=== PATIENT | female | born 1950 | race Caucasian/White ===

== ENCOUNTER 2023-10-30 18:42 | Inpatient (IN) | payer MEDICARE, SELFPAY ==
[2023-10-30] VITALS (14 sets, daily range): BP systolic 68–121; BP diastolic 42–88; PULSE 110–131; RESP 24–34; TEMP 36.7–36.9; O2SAT 94–98; BMI 28.6
--- NOTE | 2023-10-30 18:41 | XACV_ITS ---
Exam Room: 2 Ht: 152 cm Wt: 93 kg BSA: 2.04 m2 Gender: Female : 1950 Exam Priority: Routine Procedure(s): Procedure Description: Diagnostic procedure Procedure Description: PCI procedure Procedure Description: Drug Eluting Coronary Stent Procedure Description: PTCA Procedure Description: Coronary Angiography Diagnostic Cath Status: Emergency Diagnostic Findings * Patient who does not see doctors arrived at the emergency room under a STEMI alert. EKG showed old anterior wall myocardial infarction and Q waves in leads II, III and aVF. Patient was not having chest pain but mild abdominal pain. She was mildly hypotensive with a blood pressure of 90/60. Her initial troponin was almost 4000 and she had already developed elevated LFTs. My initial impression was that she had completed a subacute inferior wall myocardial infarction with Q waves, elevated LFTs and elevated troponin to a significant degree. An EKG sometime after she arrived in the emergency room showed acute ST elevation which was new and the inferior leads. It was then my impression that she was extending the infarct so I decided to take her to the cardiac catheterization laboratory. * Coronary angiography reveals right coronary artery dominance. The right coronary artery is occluded in the proximal to midportion. I placed a guide and a wire and was able to get some flow down the vessel initially. It was barely WENDIE I flow. There was significant atherosclerosis throughout the artery. There was also a modest amount of thrombus burden. The left coronary artery system is small. The left main contains a modest to significant lesion in the ostium. There was ventricularization and damping of the pressure waveform upon insertion of the catheter. I was therefore only able to take 2 or 3 views of the left system. The LAD is patent with a good-sized diagonal branch. In the midportion of the LAD just past the diagonal there is a 70 to 80% stenosis. I do not see any previously placed stents as the patient had told me she has. Circumflex is small and there is a 95% ostial lesion in the circumflex. PCI Status: Emergency PCI Indication: Immediate PCI for STEMI Interventional Findings * I placed a guide to the right coronary artery. A wire was placed to the distal vessel with relative ease. Initially started with a 3 mm balloon. I did an angioplasty of the proximal and mid vessel. I then switched this out for a longer 2.5 mm balloon and angioplastied the artery all the way from the distal to the ostial edges. This provided some increase in flow. There was significant atherosclerosis of the entire vessel. There was also a modest thrombus burden. Once reestablishing flow which was only WENDIE I flow I placed a 3 x 16 mm stent in the proximal to midportion. The distal edge of the stent caused what is probably a small edge dissection with a pinching of the artery. I then stented this with a 2.5 x 8 mm stent. In the end there was reasonable WENDIE II flow. Conclusions 1. Occlusion of the right coronary artery, probably several hours old with near completion of the infarct and then extension of the infarct and occlusion of the right coronary artery. This underwent angioplasty and stenting with reestablishment of WENDIE II flow. Significant left main disease with ventricularization and dampening of the pressure waveform. Significant mid LAD and ostial circumflex disease. Recommendations * Dopamine was started for hypotension. At the time the patient left the laboratory her blood pressure was 122/74. The dopamine has been reduced from 20 mcg/kg/min to 15 mcg/kg/min. Plan is to wean the dopamine and reconsider the coronary anatomy as she recovers. She will likely need coronary bypass surgery if she is a candidate. Interventional RX Recommendation: PCI w/o planned CABG Diagnostic RX Recommendation: medical therapy and/or counseling Anticoagulation: Heparin Pressures Phase:Rest AO : 74 / 53 ( 63 ) @ 4:27:03 PM 86 / 52 ( 69 ) @ 4:27:03 PM 99 / 59 ( 79 ) @ 4:27:03 PM 152 / 73 ( 100 ) @ 4:27:03 PM Clinical Evaluation EBL: 5mL-10mL Procedural Details Current Diagnosis : STEMI. Pre-Procedure Time Out. Identified patient by full name and date of as verbalized by the patient/guarantor. Does the consent match the physician's order: N/A Emergent. Accurate & Complete Informed Consent: N/A Emergent. Inpatient/Outpatient History & Physical on Chart: N/A Emergent. If H&P is completed, is and addenduem needed: N/A Emergent; If yes, is the addendum complete: N/A Emergent. Visualize and Verify Site with Patient/Guarantor: N/A. Relevant Radiology Images available: N/A Emergent. Pre-op teaching completed and patient verbalized understanding. The risks, benefits, and alternatives of sedation and/or procedure were discussed by physician. The patient agrees to continue. Procedure started. Physician arrived. Physician scrubbed in. Immediate Pre-Procedure Time Out. Correct Patient: N/A Emergent; Correct Procedure: N/A Emergent; Correct Site: N/A Emergent; Correct Patient Position: N/A Emergent; Correct Supplies: N/A Emergent; Dried Flammable Prep: N/A Emergent; Blood Products Available: N/A Emergent;. [facility] Clinical Fraility Score: 4: Vulnerable. Appeals Referee Indications: ACS <= 24 hours. Chest Pain Symptom Assessment: Atypical Angina. Cardiovascular Instability: Yes, if yes, Persistant Ischemic Symptoms. Correct patient, site and procedure confirmed by cath team. Current diagnosis: STEMI. PERRLA. 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 Lungs clear x 5 lobes. IV Site on Arrival: 18 gauge in the right anticubital. IV Site on Arrival: 18 gauge in the left anticubital. Oxygen started at 2liters/min via nasal canula. bilateral groins was prepped with chloroprep then draped in the usual sterile fashion. Baseline sample Acquired. HR: 92 BPM. Lidocaine 1% infiltrated to the right groin. 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 Arterial access obtained. 6 vietnamese JR 4 guide catheter was inserted over the wire. Multiple views taken of right coronary artery. Lebo guidewire was advanced through the guide catheter to lesion in the mid RCA. PCI Indication: STEMI. Inflation number : 1 A AB TREK 3.50X15 RX BALLOON was prepped and advanced across the Mid RCA , then inflated to 8 PABLO for 0:21 seconds. Inflation number: 2 The AB TREK 3.50X15 RX BALLOON was reinflated across the Mid RCA, to 8 PABLO for 0:11 seconds. Inflation number: 3 The AB TREK 3.50X15 RX BALLOON was reinflated across the Mid RCA, to 6 PABLO for 0:19 seconds. Balloon out. Dopamine turned up to 15mcg/kg/min. Results checked. Dopamine turned up to 20mcg/kg/min. Inflation number : 1 A AB TREK 2.50X25 RX BALLOON was prepped and advanced across the Dist RCA , then inflated to 8 PABLO for 0:15 seconds. Inflation number: 2 The AB TREK 2.50X25 RX BALLOON was reinflated across the Dist RCA, to 8 PABLO for 0:19 seconds. Inflation number: 4 The AB TREK 2.50X25 RX BALLOON was reinflated across the Mid RCA, to 8 PABLO for 0:18 seconds. Results checked. PCI Indication : Immediate PCI for STEMI. Balloon out. Inflation Number : 5 A SENG R CURTIS 3.0X26 HANG -Lot Number# _[id number] EXP: 08/08/2025 was prepped and advanced across the Mid RCA. The stent was deployed at 12 PABLO for 0:30 seconds. Stent balloon out over wire. Inflation Number : 3 A MDT R CURTIS 2.5X8 HANG -Lot Number# _[id number] EXP:11/29/2025 was prepped and advanced across the Dist RCA. The stent was deployed at 12 PABLO for 0:34 seconds. Stent balloon and wire out. Results checked. Guide catheter out. A 5 vietnamese JL4 catheter in over wire. Multiple views taken of left coronary artery. Catheter out. Sheath upsized to a 6 Fr. Dopamine turned down to 15mcg/kg/min. A Suture was successful obtaining hemostatsis at the Right Femoral artery insertion site. Physician scrubbed out. Arterial sheath flushed and connected to tranducer and pressure bag with heparinized saline. PERRLA. 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 No VTE prophylaxis required. Medication's Wasted: Lidocaine 1% = 10 mL. Medication's Wasted: Other = Fentanyl 100mcg Versed 1 mg. Total IV fluids: 200 mL. Vital chart was stopped. Post-op diagnosis: Stent to RCA. Complications: None. Estimated blood loss: 5mL-10mL. Responsiveness - Normal response to verbal stimuli; alert and oriented, PERRLA. Airway - Unaffected, no intervention required; spontaneous ventilation. Circulation: W/N/L, pulses unchanged. Procedure completed. Patient transferred by bed to ICU. Procedure started. Access Site Site: Right Femoral artery Sheath Size: 6 Fr Hemostasis Method: Suture Hemostasis Success: Successful Procedure Medications Start: 8:36 PM Stop: 8:36 PM Medication: Versed Amount: 1 mg Route: I.V. Start: 8:46 PM Stop: 8:46 PM Medication: Dopamine 400mg/250 mL Amount: 10 mcg/kg/min Route: I.V. drip Start: 9:14 PM Stop: 9:14 PM Medication: Heparin Amount: 4000 units Route: I.V. Start: 9:21 PM Stop: 9:21 PM Medication: Zofran (ondansetron) Amount: 4 mg Route: I.V. I, the attending physician, have reviewed and verified all procedure medications. Yes, all medications given per verbal order History/Risk Factors Hypertension: No Dyslipidemia: No Peripheral Arterial Disease (PAD): No Myocardial Infarction ([place]): No Obesity: No Renal Disease: No Prior Interventions PCI: No CABG: No Valve Surgery: No Report Signatures Finalized by Dr. Beni Sunshine MD on 10/30/2023 10:01 PM
--- NOTE | 2023-10-30 18:41 | ECG_ITS ---
[facility] Test Date: 2023-10-30 Pat Name: Venessa Tyson Department: Room: ICU03 Gender: Female Molder Vacuum: : 1950 Requested By: Lurdes Zavala Order Number: [id number] Omaira MD: Pierre Perdue M.D. Measurements Intervals [place] Rate: 130 P: 56 RI: 175 QRS: -72 QRSD: 81 T: 94 QT: 263 QTc: 387 Interpretive Statements SINUS TACHYCARDIA POSSIBLE RIGHT VENTRICULAR CONDUCTION DELAY [RSR (QR) IN V1/V2] ANTEROLATERAL MYOCARDIAL INFARCTION , OF INDETERMINATE AGE [40+ ms Q WAVE IN I/aVL/V3-V6] INFERIOR MYOCARDIAL INFARCTION, PROBABLY RECENT No previous ECG available for comparison Electronically Signed On 10-31-2023 7:01:52 CDT by Pierre Perdue M.D. [id number]
--- NOTE | 2023-10-30 18:46 | W.ED.ARRPALP ---
HPI - Arrhythmia/Palpitations General: Chief Complaint: Arrhythmia/Palpitations Stated Complaint: STEMI ALERT Time Seen by Provider: 10/30/23 18:43 History of Present Illness: STEMI alert called by EMS, EMS state patient has not been feeling good for about 2 weeks, patient been having some left chest pain and radiating to her left arm as well as abdominal pain. Mild vomiting no diaphoresis or shortness of breath patient has not been having any chest pain today or currently. Patient is being complaint today is just abdominal pain, patient tells myself she is never had any cardiac history or medical history of any kind does not take any medicine has no allergies and does not go to the doctor. Review of Systems General: Reports: 10 or more systems reviewed and unremarkable except in HPI and below PFSH ED PFSH: Medical History (Updated 10/31/23 @ 06:52 by Moshe Neff DO) Myocardial infarction, inferior wall CAD (coronary artery disease) Physical Exam Const: COMMON NORMALS: no acute distress, average body habitus, patient oriented x3, no limitations, healthy appearing, alert and well nourished HENMT: COMMON NORMALS: normocephalic, atraumatic, hearing grossly normal bilaterally, external ears normal, Normal external nose present and moist oral mucous membranes HEAD & SCALP: normocephalic and atraumatic NOSE: Normal external nose present EXTERNAL EAR: Yes external ears normal Neck/C-Spine: COMMON NORMALS: no JVD Chest: COMMONS NORMALS: normal inspection of the chest and normal palpation of entire chest wall Resp: COMMON NORMALS: normal respiratory effort, No retractions, No use of accessory muscles and clear to auscultation bilaterally AUSCULTATION: clear to auscultation bilaterally Cardio: COMMON NORMALS: no JVD, regular rhythm, S1 normal heart sound present, S2 normal heart sound present, No gallops present (Cardio), No clicks present (Cardio) and No murmurs present (Cardio); negative for regular rate (tachycardia) RATE: abnormal rate (tachycardia) RHYTHM: regular rhythm HEART SOUNDS: S1 normal heart sound present and S2 normal heart sound present GI: COMMON NORMALS: Normal to inspection, nondistended, normoactive bowel sounds present, Soft to palpation, No hepatosplenomegaly present and no masses; negative for non-tender (tender over epigastric area, reproduces pain ) PALPATION: Yes Soft to palpation and Yes No hepatosplenomegaly present Neuro: COMMON NORMALS: patient oriented x3 SENSORIUM/ORIENTATION: Yes alert Course Vital Signs: Vital signs: Vital Signs Temperature 98.1 F 10/30/23 22:15 Pulse Rate 117 H 10/31/23 05:41 Respiratory Rate 24 H 10/30/23 22:45 Blood Pressure 116/88 10/30/23 22:45 Pulse Oximetry 95 10/30/23 22:45 Oxygen Delivery Me thod Room Air 10/30/23 22:00 MDM - Arrhythmia/Palpitations Medical Decision Making stemi alert called, ekg texted to dr elizalde, Dr Elizalde to evaluate pt shortly after arrival to ed, says atypical presentation with atypical ekg, delayed presentation of stemi with q waves, plan admission and serial enzymes from a cardiac standpoint [facility]ial lab of [facility] [id number] called to nursing, Dr Elizalde notified of this and other labs available at this time, such as wbc 26, bun/cr 26/1.4, lactic acid of 9.7, total bilirubin 5.9, a ct of chest/abd/pelvis was orderd, pt was bolused 2 liters of normal saline thought wbc, bun/cr, and lactic acid may be elevated due to cardiogenic shock as pts blood pressure was declining but continued to look for active source of infection and cause of elevated bilirubin, Dr Elizalde said prob something had happened but due to the pt being a very poor historian and unknown time of event, possibly up to 2 weeks ago, and q waves being present,pt is still not a candidate for angiography, and recommends following serial enzymes Patient came back from CT scan of her chest abdomen pelvis we noticed rhythm change on the monitor, we got any new EKG, this EKG had more ST changes consistent with STEMI, this EKG was texted Dr. Elizalde who came and evaluated the patient, patient will be going to Nuclear Supervising Operator. Pts pressure stayed soft even though 2 l of fluids bolused, dopamine was hung but not started infusion due to going to laboratory tech,dopamine Pt left for the laboratory tech at 20:26. Medical Records I reviewed the patient's medical records. Lab Data I reviewed the patient's lab results. 10/31/23 04:03 10/31/23 04:03 Radiology Impressions Chest/Abdomen/Pelvis CT 10/30/23 18:56 IMPRESSION: 1. There are scattered regions of bilateral subpleural interstitial thickening, greatest at the lung bases, suggestive of pulmonary fibrosis. 2. Mild cardiomegaly. 3. Multivessel atherosclerotic disease which involves the coronary arteries. IMPRESSION: 1. Gallbladder is distended associated with pericholecystic fluid stranding and regions of possible gallbladder wall thickening. Findings raise concern for acute cholecystitis. Consider right upper quadrant ultrasound for further evaluation as clinically warranted. 2. Mild peripancreatic hazy stranding raises concern for acute pancreatitis. Please correlate with pancreatic laboratory values. 3. There is mucosal thickening at the hepatic flexure colon and duodenum adjacent to the gallbladder which may be reactive in nature. Nonspecific enteritis is a possibility as well. 4. Chronic defects are present through the bilateral L5 pars interarticularis. There is resultant grade 1 spondylolisthesis at L5-S1 with bilateral neural foramina narrowing. 5. Moderate T9 anterior compression fracture. Laboratory Results WBC 26.00 10^3/uL (3.29-11.43) H 10/30/23 18:20 RBC 4.45 10^6/uL (3.85-5.65) 10/30/23 18:20 Hgb 13.90 g/dL (11.27-16.99) 10/30/23 18:20 Hct 41.2 % (36-47) 10/30/23 18:20 MCV 92.6 fl (85-98) 10/30/23 18:20 MCH 31.2 pg (27-33) 10/30/23 18:20 MCHC 33.7 g/dL (30-55) 10/30/23 18:20 RDW 13.9 % (12.1-15.1) 10/30/23 18:20 Plt Count 297 10^3/cmm (157-399) 10/30/23 18:20 MPV 9.7 fL (7.4-10.4) 10/30/23 18:20 Neut % (Auto) 92.4 % 10/30/23 18:20 Lymph % (Auto) 4.9 % 10/30/23 18:20 [place] % (Auto) 1.3 % 10/30/23 18:20 Eos % (Auto) 0.1 % 10/30/23 18:20 Baso % (Auto) 0.2 % 10/30/23 18:20 Neut # (Auto) 24.03 10^3/uL (1.8-7.7) H 10/30/23 18:20 Lymph # (Auto) 1.3 10^3/uL (0.8-4.8) 10/30/23 18:20 [place] # (Auto) 0.3 10^3/uL (0.2-0.9) 10/30/23 18:20 Eos # (Auto) 0.0 10^3/uL (0.0-0.8) 10/30/23 18:20 Baso # (Auto) 0.1 10^3/uL (0.0-0.1) 10/30/23 18:20 Nucleated RBC % (auto) 0 % 10/30/23 18:20 Nucleated RBCs # 0.0 /100WBC 10/30/23 18:20 Sodium 130 mmol/L (136-145) L 10/30/23 18:20 Potassium 3.2 mmol/L (3.5-5.1) L 10/30/23 18:20 Chloride 91 mmol/L (98-107) L 10/30/23 18:20 Carbon Dioxide 16 mmol/L (22-29) L 10/30/23 18:20 Anion Gap 26.2 (5-19) H 10/30/23 18:20 BUN 26 mg/dL (8-23) H 10/30/23 18:20 Creatinine 1.4 mg/dL (0.5-0.9) H 10/30/23 18:20 GFR Calculation Not Reportable 10/30/23 18:20 Glucose 147 mg/dL (65-115) H 10/30/23 18:20 Calculated Osmolality 277 mOsm/kg (285-295) L 10/30/23 18:20 Lactic Acid 9.7 mmol/L (0.5-2.2) H* 10/30/23 18:20 Calcium 8.7 mg/dL (8.5-10.5) 10/30/23 18:20 Magnesium 1.7 mg/dL (1.7-2.3) 10/30/23 18:20 Total Bilirubin 5.9 mg/dL (0.15-1.2) H 10/30/23 18:20 AST 94 U/L (0-32) H 10/30/23 18:20 ALT 50 U/L (0-33) H 10/30/23 18:20 Alkaline Phosphatase 464 U/L (35-105) H 10/30/23 18:20 Troponin T Baseline 3889 ng/L (0-10) H* 10/30/23 18:20 Troponin T 120 Minute 3096 ng/L (0-10) H 10/30/23 20:17 Delta Troponin T -793 ABS# (0-10) L 10/30/23 20:17 C-Reactive Protein 184.1 mg/L (0.0-4.9) H 10/30/23 18:20 Total Protein 7.5 g/dL (6.6-8.7) 10/30/23 18:20 Albumin 2.9 g/dL (3.5-5.2) L 10/30/23 18:20 Globulin 4.6 g/dL (1.3-4.6) 10/30/23 18:20 Lipase 77111 U/L (13-60) H 10/30/23 18:20 Procalcitonin 0.94 ng/mL (0-0.5) H 10/30/23 18:20 All radiology interpretation(s) finalized by discharge EKG Data EKG 1: I personally reviewed and interpreted this EKG as follows: EKG interpretation date: 10/30/23 EKG interpretation time: 18:36 Prior EKG tracings: not available for review Ischemic changes: acute STEMI, ST elevation (2,3, avf,) and q waves Interpretation: st depresion v2 Other EKG comments: Chest/Abdomen/Pelvis CT 10/30/23 18:56 IMPRESSION: 1. There are scattered regions of bilateral subpleural interstitial thickening, greatest at the lung bases, suggestive of pulmonary fibrosis. 2. Mild cardiomegaly. 3. Multivessel atherosclerotic disease which involves the coronary arteries. IMPRESSION: 1. Gallbladder is distended associated with pericholecystic fluid stranding and regions of possible gallbladder wall thickening. Findings raise concern for acute cholecystitis. Consider right upper quadrant ultrasound for further evaluation as clinically warranted. 2. Mild peripancreatic hazy stranding raises concern for acute pancreatitis. Please correlate with pancreatic laboratory values. 3. There is mucosal thickening at the hepatic flexure colon and duodenum adjacent to the gallbladder which may be reactive in nature. Nonspecific enteritis is a possibility as well. 4. Chronic defects are present through the bilateral L5 pars interarticularis. There is resultant grade 1 spondylolisthesis at L5-S1 with bilateral neural foramina narrowing. 5. Moderate T9 anterior compression fracture. EKG 2: I personally reviewed and interpreted this EKG as follows: EKG interpretation date: 10/30/23 EKG interpretation time: 19:40 Prior EKG tracings: available for review Ischemic changes: acute STEMI and ST elevation (avf,3,) Interpretation: depression 1, avl, v2, Other EKG comments: Chest/Abdomen/Pelvis CT 10/30/23 18:56 IMPRESSION: 1. There are scattered regions of bilateral subpleural interstitial thickening, greatest at the lung bases, suggestive of pulmonary fibrosis. 2. Mild cardiomegaly. 3. Multivessel atherosclerotic disease which involves the coronary arteries. IMPRESSION: 1. Gallbladder is distended associated with pericholecystic fluid stranding and regions of possible gallbladder wall thickening. Findings raise concern for acute cholecystitis. Consider right upper quadrant ultrasound for further evaluation as clinically warranted. 2. Mild peripancreatic hazy stranding raises concern for acute pancreatitis. Please correlate with pancreatic laboratory values. 3. There is mucosal thickening at the hepatic flexure colon and duodenum adjacent to the gallbladder which may be reactive in nature. Nonspecific enteritis is a possibility as well. 4. Chronic defects are present through the bilateral L5 pars interarticularis. There is resultant grade 1 spondylolisthesis at L5-S1 with bilateral neural foramina narrowing. 5. Moderate T9 anterior compression fracture. Discharge Plan Discharge Patient Disposition: Admitted As Inpatient Admit Provider: Beni Elizalde Clinical Impression: Cardiogenic shock ST elevation (STEMI) myocardial infarction Qualifiers: Involved coronary artery: unspecified coronary artery Qualified Code(s): I21.3 - ST elevation (STEMI) myocardial infarction of unspecified site Condition: Stable Coding Level of Care Code ED [employer] Developer for Christofer Vicente
[2023-10-30] MEDS: heparin 5,000 unit/mL INJ 1 mL 4000 UNIT IVP (18:48)
[2023-10-30] MEDS: clopidogrel 300 mg Tablet 600 MG PO (18:48)
[2023-10-30 18:52] LABS: Basophils # 0.1 10^3/uL (0.0-0.1); Basophils % 0.2 %; Eosinophils % 0.1 %; Hematocrit 41.2 % (36-47); Lymphocytes # 1.3 10^3/uL (0.8-4.8); Lymphocytes % 4.9 %; Mean Corpuscular HGB Conc 33.7 g/dL (30-55); Mean Corpuscular Hemoglobin 31.2 pg (27-33); Mean Corpuscular Volume 92.6 fl (85-98); Mean Platelet Volume 9.7 fL (7.4-10.4); Monocytes # 0.3 10^3/uL (0.2-0.9); Monocytes % 1.3 %; Neutrophils # 24.03 10^3/uL (1.8-7.7); Neutrophils % 92.4 %; Nucleated Red Blood Cells % 0 %; Platelet Count 297 10^3/cmm (157-399); Red Blood Count 4.45 10^6/uL (3.85-5.65); Red Cell Distribution Width 13.9 % (12.1-15.1)
--- NOTE | 2023-10-30 18:56 | CTR_ITS ---
PROCEDURE INFORMATION: Exam: CT Chest With Contrast; Diagnostic Exam date and time: 10/30/2023 7:27 PM Age: 73 years old Clinical indication: Abdominal pain; Epigastric; Chest wall pain; Additional info: Chest pain, epigastric pain, tachycardia, leukocytosis TECHNIQUE: Imaging protocol: Diagnostic computed tomography of the chest with contrast. Radiation optimization: All CT scans at this facility use at least one of these dose optimization techniques: automated exposure control; mA and/or kV adjustment per patient size (includes targeted exams where dose is matched to clinical indication); or iterative reconstruction. Contrast material: OMNI 350; Contrast volume: 88 ml; Contrast route: INTRAVENOUS (IV); COMPARISON: No relevant prior studies available. RADIATION DOSE METRICS: Total DLP (mGy-cm): 753 FINDINGS: Lungs: There are scattered regions of bilateral subpleural interstitial thickening, greatest at the lung bases, suggestive of pulmonary fibrosis. Pleural spaces: Unremarkable. No pneumothorax. No pleural effusion. Heart: Mild cardiomegaly. Coronary arteries: Multivessel atherosclerotic disease which involves the coronary arteries. Lymph nodes: Unremarkable. No enlarged lymph nodes. Vasculature: Unremarkable. No aortic aneurysm. Bones/joints: Unremarkable. No acute fracture. Soft tissues: Unremarkable. PROCEDURE INFORMATION: Exam: CT Abdomen And Pelvis With Contrast Exam date and time: 10/30/2023 7:27 PM Age: 73 years old Clinical indication: Abdominal pain; Epigastric; Chest wall pain; Additional info: Chest pain, epigastric pain, tachycardia, leukocytosis TECHNIQUE: Imaging protocol: Computed tomography of the abdomen and pelvis with contrast. Radiation optimization: All CT scans at this facility use at least one of these dose optimization techniques: automated exposure control; mA and/or kV adjustment per patient size (includes targeted exams where dose is matched to clinical indication); or iterative reconstruction. Contrast material: OMNI 350; Contrast volume: 88 ml; Contrast route: INTRAVENOUS (IV); COMPARISON: No relevant prior studies available. RADIATION DOSE METRICS: Total DLP (mGy-cm): 529 FINDINGS: Liver: Normal. No mass. Gallbladder and biliary ducts: The gallbladder is distended associated with pericholecystic fluid stranding. No calcified stones are seen. Common bile duct is mildly prominent measuring 8.4 mm. Gallbladder wall appears thickened in regions measuring 5 mm series 5, image 24. Pancreas: Mild peripancreatic hazy stranding. Spleen: Normal. No splenomegaly. Adrenal glands: Normal. No mass. Kidneys and ureters: Normal. No hydronephrosis. Stomach and bowel: There is mucosal thickening of the duodenal with adjacent mesenteric stranding. There is mucosal thickening of the hepatic flexure large bowel with adjacent mesenteric stranding. These findings are adjacent to the gallbladder and may be reactive in nature. Appendix: No evidence of appendicitis. Intraperitoneal space: See Stomach and bowel finding. Vasculature: Unremarkable. No abdominal aortic aneurysm. Lymph nodes: Unremarkable. No enlarged lymph nodes. Urinary bladder: Unremarkable as visualized. Reproductive: Unremarkable as visualized. Bones/joints: Chronic defects are present through the bilateral L5 pars interarticularis. There is resultant grade 1 spondylolisthesis at L5-S1 with bilateral neural foramina narrowing. Moderate T9 anterior compression fracture. Soft tissues: Small fat containing umbilical hernia. CT/CT chest abdpel w/*[id number] IMPRESSION: 1. There are scattered regions of bilateral subpleural interstitial thickening, greatest at the lung bases, suggestive of pulmonary fibrosis. 2. Mild cardiomegaly. 3. Multivessel atherosclerotic disease which involves the coronary arteries. IMPRESSION: 1. Gallbladder is distended associated with pericholecystic fluid stranding and regions of possible gallbladder wall thickening. Findings raise concern for acute cholecystitis. Consider right upper quadrant ultrasound for further evaluation as clinically warranted. 2. Mild peripancreatic hazy stranding raises concern for acute pancreatitis. Please correlate with pancreatic laboratory values. 3. There is mucosal thickening at the hepatic flexure colon and duodenum adjacent to the gallbladder which may be reactive in nature. Nonspecific enteritis is a possibility as well. 4. Chronic defects are present through the bilateral L5 pars interarticularis. There is resultant grade 1 spondylolisthesis at L5-S1 with bilateral neural foramina narrowing. 5. Moderate T9 anterior compression fracture.
--- NOTE | 2023-10-30 19:03 | P.CONIM_ITS ---
Providers/Reason For Consult 2 Consulting Physician/Specialty*: Cardiovascular medicine Reason for Consult*: STEMI alert Requesting Physician: Emergency room History of Present Illness History of Present Illness Venessa Tyson is a 73 year old female who does not see physicians. She is a extraordinarily poor historian. She apparently lives with her grandson. She does not know where he is at the time. She says that she had the onset of abdominal pain 3 hours ago. She called the ambulance. The ambulance drivers called a STEMI alert. Her EKG shows Q waves in leads II, III, aVF and V3 through V6. There is minimal ST elevation in leads III and aVF. There is ST segment depression in leads I and L. Upon arrival to the emergency room she was complaining of abdominal pain. Her blood pressure is 90/54. She says she does not take any medications and has no allergies. She says that she has stents in her heart but she does not remember anything about having them put in. She does not know if she has had a heart attack. She says she does not have any other medical problems. She has not been seen by a physician in 10 or more years. Initial labs which came back at the time of my arrival include a white blood cell count of 26,000. Potassium is 3.2. Her BUN and creatinine are slightly high 26 and 1.4. The initial troponin is 3389. Her transaminases are elevated. Her albumin is 2.9. My initial impression was that she had had an old anterior wall myocardial infarction as evidenced by Q waves in leads V3 through V6 and within several hours or days had an inferior wall myocardial infarction which she had essentially completed. She had developed Q waves with significant troponin elevation and elevation in her transaminases. While in the emergency room another EKG was obtained at 1942 hrs. This now shows ST elevation significantly in leads III and aVF with ST depression in leads I and L and V1 and V2. She is now extending this infarct. Review of Systems 2 Narrative: Review of systems is negative Medications/Allergies Allergies Allergy/AdvReac Type Severity Reaction Status Date / Time No Known Allergies Allergy Verified 10/30/23 18:44 PFSH Acute 2 PFSH: Medical History (Updated 10/30/23 @ 19:59 by Beni Sunshine MD) Myocardial infarction, inferior wall CAD (coronary artery disease) Vitals/I&O/Wt Last Vital Signs Temp 98.4 F 10/30/23 18:39 Pulse 126 H 10/30/23 18:57 Resp 24 H 10/30/23 18:57 BP 90/54 10/30/23 18:57 Pulse Ox 95 10/30/23 18:57 O2 Del Method Room Air 10/30/23 18:39 Weight last 48 hrs Weight 167 lb Physical Exam 2 Narrative: GENERAL: In general she looks comfortable. She is complaining of mild abdominal pain but no chest pain. HEENT: Exam within normal limits. NECK: Supple without jugular vein distention. The carotid upstroke is normal without bruits. BACK: Exam normal. LUNGS: Clear. HEART: Regular rate and rhythm. ABDOMEN: Benign without organomegaly or tenderness. EXTREMITIES: No edema. NEUROLOGIC: Exam normal. SKIN: Unremarkable. Data 10/30/23 18:20 10/30/23 18:20 A&P Assessment and plan (1) CAD (coronary artery disease): (2) Myocardial infarction, inferior wall: Plan She will go to the cardiac catheterization laboratory. This is a high risk situation with what is probably a previous anterior wall PR and a new nearly completed inferior wall PR with extension. Consult Attestations 2 Medical Necessity Statement: Hospitalization and cardiac catheterization required for management of subacute inferior wall PR with extension. and High Time for a total of 75 minutes, includes reviewing past or interval history, examining/interviewing patient, placing orders, counseling patient/family/other support, updating patient/family/other support, discussing plan of care with staff, communicating with other healthcare providers, documenting encounter and coordinating care Diagnoses CAD (coronary artery disease) I25.10 Myocardial infarction, inferior wall I21.19
[2023-10-30 19:07] LABS: Alanine Aminotransferase 50 U/L (0-33); Albumin Level 2.9 g/dL (3.5-5.2); Alkaline Phosphatase 464 U/L (35-105); Anion Gap 26.2 (5-19); Aspartate Amino Transferase 94 U/L (0-32); Blood Urea Nitrogen 26 mg/dL (8-23); Calcium 8.7 mg/dL (8.5-10.5); Carbon Dioxide 16 mmol/L (22-29); Chloride 91 mmol/L (98-107); Creatinine Clr Calc Pharmacy 36.1938; Globulin 4.6 g/dL (1.3-4.6); Glucose 147 mg/dL (65-115); Osmolality Calculated 277 mOsm/kg (285-295); Potassium 3.2 mmol/L (3.5-5.1); Sodium 130 mmol/L (136-145); Total Bilirubin 5.9 mg/dL (0.15-1.2); Total Protein 7.5 g/dL (6.6-8.7)
[2023-10-30 19:08] LABS: Troponin(5th) Baseline 3889 ng/L (0-10)
[2023-10-30] MEDS: sodium chloride 0.9% 1,000 ML 999 ML IV ×2 (19:13→19:47)
--- NOTE | 2023-10-30 19:13 | PC.NURSE ---
Dr Neff notified of baseline troponin level.
[2023-10-30 19:18] LABS: C Reactive Protein 184.1 mg/L (0.0-4.9); Magnesium 1.7 mg/dL (1.7-2.3)
[2023-10-30] MEDS: iohexol 350 mg/mL 500 mL Btl (per mL) IV (19:36)
--- NOTE | 2023-10-30 19:49 | PC.NURSE ---
pt plavix pt was administered plavix @ 1950 by jody musa. maximiliano estrada rn.
[2023-10-30 20:17] LABS: Lactic Sepsis W/Reflex 9.7 mmol/L (0.5-2.2)
[2023-10-30 20:21] LABS: Procalcitonin 0.94 ng/mL (0-0.5)
--- NOTE | 2023-10-30 20:25 | PC.NURSE ---
Dopamine given to salvage laborer nursing staff per instruction of Dr Neff. Dopamine pulled from [facility] and given to Therese ORLANDO.
[2023-10-30 20:41] LABS: Troponin 5 2HR Delta -793 ABS# (0-10)
--- NOTE | 2023-10-30 20:41 | ECG_ITS ---
[facility] [place] Test Date: 2023-10-30 Pat Name: Venessa Tyson Department: Room: ICU03 Gender: Female Financial Aid Coordinator: : 1950 Requested By: Lurdes Zavala Order Number: [id number] Omaira MD: Pierre Perdue M.D. Measurements Intervals [place] Rate: 15 P: 0 AL: 0 QRS: -51 QRSD: 206 T: 217 QT: 658 QTc: 330 Interpretive Statements SINUS RHYTHM WITH HIGH GRADE AV BLOCK INTRAVENTRICULAR CONDUCTION DELAY [130+ ms QRS DURATION] INFERIOR MYOCARDIAL INFARCTION , PROBABLY RECENT [40+ ms Q WAVE AND/OR ST/T ABNORMALITY IN II/aVF] ANTEROLATERAL MYOCARDIAL INFARCTION , OF INDETERMINATE AGE [40+ ms Q WAVE IN I/aVL/V3-V6] PROLONGED QT INTERVAL No previous ECG available for comparison Electronically Signed On 10-31-2023 7:04:36 CDT by Pierre Perdue M.D. [email or web address] [email or web address] [email or web address]/store/[id number] f
[2023-10-30 20:43] LABS: Troponin 5 2HR 3096 ng/L (0-10)
[2023-10-30 20:49] LABS: Lipase 12009 U/L (13-60)
[2023-10-30 21:23] LABS: Reflex Lactate Order REFLEX LACTIC ORDERD
--- NOTE | 2023-10-30 21:45 | PC.NURSE ---
Received from oil field laborer via bed with nurse at bedside. Sheath in place to right groin connected to pressure bag. Right groin insertion site noted with no hematoma or bleeding with clear dressing c/d/i. No reports of pain or shortness of breath. Dr. Sunshine to bedside and order given to keep right arterial sheath in place overnight to monitor blood pressure closely and maintain dopamine infusing to maintain SBP over 110. Educated patient that she will have to remain in bed tonight with head below 10degrees.
[2023-10-30] MEDS: DOPamine drip 400 MG/250 ML PREMIX 42.61 MG IV (21:51)
--- NOTE | 2023-10-30 21:53 | PC.NURSE ---
Patient came into the ICU with Dopamine drip running at 15 mcg/kg/min. Drip was scanned and MAR was updated to reflect this.
[2023-10-30] MEDS: sodium chloride 0.9% 1,000 ML 100 ML IV (22:03)
[2023-10-30] MEDS: enoxaparin 40 mg/0.4 mL Syringe SUBCUT (22:04)
[2023-10-30 22:16] LABS: Add Urine Microscopic? YES; Bilirubin Urine 2+ (Negative); Blood Urine Neg (Negative); Glucose Urine UA Norm (Normal); Ketones Urine 1+ (Negative); Leukocyte Esterase Urine Trace (Negative); Nitrate Urine Negative (Negative); Protein Urine 1+ (Negative); Urine Appearance Turbid (CLEAR); Urine Color Yellow (Yellow); Urobilinogen Urine 4 mg/dL (Negative); pH Urine 5 (5-7)
[2023-10-30 22:17] LABS: Add Urine Culture? Yes; Amorphous Sediment Urine 1+ /hpf; Bacteria Urine 3+ /hpf; Coarse Granular Casts Urine 0-4 /lpf; Mucus Urine 2+ /hpf; Transitional Epi Cells Urine 0-4 /hpf; WBC Urine 15-25 /hpf (0-5)
[2023-10-31] VITALS (12 sets, daily range): BP systolic 96–119; BP diastolic 68–86; PULSE 107–117; RESP 22–34; TEMP 36.7; O2SAT 90–94
[2023-10-31 00:18] LABS: Lactic Acid level (Lactate) 2.3 mmol/L (0.5-2.2)
--- NOTE | 2023-10-31 00:41 | ECG_ITS ---
[facility] Test Date: 2023-10-31 Pat Name: Venessa Tyson Department: Room: ICU03 Gender: Female Brass Reclaimer: : 1950 Requested By: Lurdes Zavala Order Number: [id number] Omaira MD: Pierre Perdue M.D. Measurements Intervals [place] Rate: 122 P: 0 [place]: 0 QRS: -39 QRSD: 90 T: 120 QT: 265 QTc: 378 Interpretive Statements SINUS TACHYCARDIA INFERIOR MYOCARDIAL INFARCTION , LIKELY RECENT [40+ ms Q WAVE AND/OR ST/T ABNORMALITY IN II/aVF] POSSIBLE ANTEROLATERAL MYOCARDIAL INFARCTION , LIKELY RECENT[30 ms Q WAVE IN I/aVL/V3-V6] Compared to ECG 10/30/2023 19:40:12 Sinus rhythm no longer present Intraventricular conduction delay no longer present Prolonged QT interval no longer present Myocardial infarct finding still present Electronically Signed On 10-31-2023 7:03:53 CDT by Pierre Perdue M.D. [email or web address] Holdingsochs[facility] healthB[facility]heAmeric[facility].[employer]/store/[id number]
[2023-10-31 01:04] LABS: Troponin 5 6HR Delta -851 ng/L (0-12)
[2023-10-31 01:06] LABS: Troponin 5 6HR 3038 ng/L (0-10)
[2023-10-31] MEDS: DOPamine drip 400 MG/250 ML PREMIX 42.61 MG IV ×2 (02:06→07:19)
[2023-10-31 04:13] LABS: Basophils # 0.1 10^3/uL (0.0-0.1); Basophils % 0.4 %; Hematocrit 35.5 % (36-47); Lymphocytes # 0.8 10^3/uL (0.8-4.8); Mean Corpuscular HGB Conc 34.6 g/dL (30-55); Mean Corpuscular Hemoglobin 31.9 pg (27-33); Mean Corpuscular Volume 92.2 fl (85-98); Mean Platelet Volume 9.3 fL (7.4-10.4); Monocytes # 0.6 10^3/uL (0.2-0.9); Monocytes % 2.2 %; Neutrophils # 25.82 10^3/uL (1.8-7.7); Neutrophils % 93.4 %; Nucleated Red Blood Cells % 0 %; Platelet Count 258 10^3/cmm (157-399); Red Blood Count 3.85 10^6/uL (3.85-5.65); Red Cell Distribution Width 14.2 % (12.1-15.1); White Blood Count 27.64 10^3/uL (3.29-11.43)
[2023-10-31 05:02] LABS: Anion Gap 18.6 (5-19); Blood Urea Nitrogen 22 mg/dL (8-23); Carbon Dioxide 14 mmol/L (22-29); Chloride 100 mmol/L (98-107); Creatinine Clr Calc Pharmacy 46.1311; Potassium 3.6 mmol/L (3.5-5.1); Sodium 129 mmol/L (136-145)
[2023-10-31 05:03] LABS: Glucose 215 mg/dL (65-115); Osmolality Calculated 278 mOsm/kg (285-295)
[2023-10-31] MEDS: sodium chloride 0.9% 1,000 ML 100 ML IV (05:12)
--- NOTE | 2023-10-31 06:28 | PC.NURSE ---
Dr. Sunshine to bedside, states that patient has a hot gallbladder and he will consult the hospitalist for this. Attempted to call Carmen Arriola, patients daughter to update on this, no answer at present time.
--- NOTE | 2023-10-31 06:35 | P.PN_ITS ---
Subjective 2 Subjective: Still no CP. I became aware of the CT and lab abnormalities at 0600 today. She is having minimal abdominal pain. CT suggests choecystitis and possible pancreatitis. Lipase is elevated. WBC 26k. Cr 1.1 this am. Troponins still quite high. Transaminases elevated. Vitals/I&O/Wt Last Vital Signs Temp 98.1 F 10/30/23 22:15 Pulse 117 H 10/31/23 05:41 Resp 24 H 10/30/23 22:45 BP 116/88 10/30/23 22:45 Pulse Ox 95 10/30/23 22:45 O2 Del Method Room Air 10/30/23 22:00 10/30/23 10/30/23 10/31/23 14:59 22:59 06:59 Intake Total 1999 1096.093 / 3096.093 Output Total 100 / 100 450 / 550 Balance 1900 / 1900 646.093 / 2546.093 Weight last 48 hrs Weight 168 lb 9.6 oz Weight 167 lb 8 oz Weight 167 lb Physical Exam 2 Narrative: In general comfortable Heent: WNL chest clear COR tachy abd soft mildly tender ext no edemal Urinary Catheter Management: Smith: Cath Placed During This Visit: yes Reason for Continuing Indwelling Catheter: Accurate Measurement of Urinary Output in Critically Ill Patients Urinary Catheter Date of Insertion: 10/30/23 Urinary Catheter Time of Insertion: 21:35 Data 10/31/23 04:03 10/31/23 04:03 Micro: Microbiology 10/30/23 19:47 Blood Culture - Preliminary Blood SPECIMEN COLLECTED 10/30/23 19:45 Blood Culture - Preliminary Blood SPECIMEN COLLECTED A&P Assessment and plan (1) CAD (coronary artery disease): (2) Myocardial infarction, inferior wall: (3) Cholecystitis: (4) Transaminitis: Plan Surgery consult. GB drain. Antibiotics. Attestations 2 Medical Necessity Statement*: Continued hspitalization for NM and cholecystitis. and High Time for a total of 60 minutes, includes reviewing past or interval history, examining/interviewing patient, placing orders, counseling patient/family/other support, updating patient/family/other support, discussing plan of care with staff, communicating with other healthcare providers, documenting encounter and coordinating care Diagnoses CAD (coronary artery disease) I25.10 Myocardial infarction, inferior wall I21.19 Cholecystitis K81.9 Transaminitis R74.01
--- NOTE | 2023-10-31 06:43 | US_ITS ---
WS: [id number] RIGHT UPPER QUADRANT ULTRASOUND HISTORY: abnormal GB and pancreas on CT COMPARISON: None available. Liver: 13.3 cm in length. Normal size liver and echogenicity. No bile duct dilatation or mass. Portal Vein: Normal hepatopetal flow with monophasic waveform. Gallbladder: mild hydrops with wall thickening. no stones, possible septation or gangrenous wall. CBD: not seen Pancreas: not seen Right kidney: 9.7 cm in length. Normal size and echogenicity. No hydronephrosis or mass. Aorta and IVC: Unremarkable abdominal aorta and IVC. No ascites. US/US abdomen limited [id number] IMPRESSION: Suspect acute cholecystitis with possible gangrene. Called to Dr. Fournier at time of exam.
[2023-10-31] MEDS: ampicillin-sulbactam 1.5 GM in sodium chloride 0.9% (plus) 50 ML IV (07:52)
[2023-10-31] MEDS: aspirin 81 mg EC Tablet PO (10:30)
[2023-10-31] MEDS: clopidogrel 75 mg Tablet PO (10:31)
[2023-10-31] MEDS: piperacillin-tazobactam 3.375 GM in sodium chloride 0.9% (plus) 50 ML IV (11:08)
--- NOTE | 2023-10-31 11:13 | PC.SOCIAL ---
IMM Update pg 2 of IMM updated and reviewed w/ patient. Copy provided and copy dated, initialed and placed in chart.
--- NOTE | 2023-10-31 11:42 | PM.CONSULT ---
Providers/Reason For Consult Consulting Physician/Specialty*: cardiology/surgery Reason for Consult*: septic shock Attending Physician: Beni Sunshine MD History of Present Illness History of Present Illness Venessa Tyson is a 73 year old female with a past medical history of CAD, history of stenting in 2008 who presents to [facility] for right upper quadrant abdominal pain. Currently patient is alert oriented x 4, following all commands, she is on 10 of dopamine, blood pressure 116/88, pulse is 110, sinus tachycardia, respiratory rate 20, she is 90% on room air, temperature 98.1. Patient tells me for the last 2 weeks she has been experiencing abdominal pain, right upper quadrant pain, nausea, vomiting, feeling unwell, she is also been experiencing intermittent chest pain, she tells me that she came to the emergency room this evening due to severe right upper quadrant abdominal pain that was unrelenting. -Ambulance was called out to patient home, ambulance called STEMI alert ? In the emergency room she was found to have Q waves in leads II, III, aVF, V3 through V6, minimal ST elevations lead 3 and aVF -Initial concern was for old anterior wall myocardial infarction as evidenced by Q waves in leads V3 to V6 ? While in the emergency room another EKG obtained at [address] elevation in lead III, aVF with ST depressions in leads I V2, V3, baseline troponin 3889 -There was concerns for previous anterior wall IA and a newly completed inferior wall IA with extension -Patient was taken to the [facility], had 2 stents placed to RCA, moved to the ICU on a dopamine drip ? Monitor in ICU on the dopamine drip, ? CT scan in the emergency room shows gallbladder is distended associated with pericholecystic fluid stranding and regions of possible gallbladder wall thickening, findings raising the concern of acute cholecystitis, with mild peripancreatic hazy stranding raising concern for acute pancreatitis ? WBC in the emergency room 26,000, neutrophilic, lactic acid 9.7, down to 2.3, creatinine 1.4, bili is 5.9, AST 94, ALT 50, alk phos 464, lipase over 12,000, CRP 184, Pro-Jovanny 0.94, UA showing evidence of UTI -General surgery was consulted by cardiology, for concerns for acute cholecystitis, concerns for gallstone pancreatitis, general surgery recommended cholecystostomy tube placement, IR -Given recent history of stent placement patient's aspirin Plavix, our radiology service feels patient is a high risk of bleeding, high risk of complications for IR guided cholecystostomy tube placement, recommended transfer to tertiary level center after discussion with radiology and general surgery -Hospitalist team was consulted in the morning at about 11 AM by supervisor malt house -I reviewed the case in detail at about 11 AM, -Patient was seen immediately therafter -Patient was examined, she denies any chest pain, does report severe right upper quadrant pain, no shortness of breath, does report fatigue, malaise, does report feeling feverish, feeling nauseous ? I did detailed discussion with patient what I think likely has happened disease?for the last 2 weeks she was dealing with her acute cholecystitis, and likely what happens at she developed gallstone pancreatitis, and sepsis and septic shock, there was no reason the reason she probably ended up in the hospital, given her underlying CAD, at the same time she developed an cardiac stress because of the gallstone pancreatitis, without cardiac stress likely resulted in an STEMI -The other concern I had was for a common bile duct stone, although the CT scan shows that the CBD is mildly prominent 8.4 mm, she could possibly have a common bile duct stone, and have features of acute ascending cholangitis, nonetheless we do not have any GI capabilities here at [facility], we do not have any gastroenterology ERCP capability, would recommend for her to be transferred to tertiary level center for consideration -Nonetheless when I am concerned about is her gallstone pancreatitis, and her gangrenous cholecystitis ? Given that now she is on aspirin and Plavix, she is a high risk for a cholecystectomy -I spoke to interventional radiology, given that patient is on aspirin Plavix she is a high bleeding risk, and she would be a complicated procedure given her gangrenous cholecystitis, they felt that patient would be better served at a tertiary level center that could control bleeding if that were the case ? Spoke to cardiology, Dr. Sunshine, patient needs to be on aspirin, Plavix, certainly it could be held for a procedure, but given 2 RCA stents being placed, her ischemic cardiomyopathy is a very high risk to hold antiplatelet therapy, it certainly is a difficult situation given that she needs to have surgical intervention for gangrenous cholecystitis ? Given patient's complicated situation, she would be better served [facility], I could place the cholecystostomy tube and could have IR backup/general surgery backup in the case that she would have any bleeding ? I have already spoken to general surgery, their concern was asked with IR with bleeding for cholecystostomy tube placement, but in addition there was concern for common bile duct stone and the need for ERCP procedure over which we do not have here at [facility] ? Spoke to [facility] transfer line, need for transfer for high risk cholecystostomy tube placement high risk of bleeding, needs IR, needs general surgery, needs gastroenterology for consideration of possible ERCP procedure for concern for possible CBD dilatation common bile duct stone ? Patient's pain is septic Spoke to accredited legal secretary at [facility], accepted transfer, to accredited legal secretary at [facility], accepted to transfer, to ICU, accredited legal secretary at [facility], accepted transfer, to ICU, Patient was reexamined, he is on 12 dopamine, alert, awake, on room air, npo, discussed transfer, she agrees to transfer to [facility] Review of Systems Const: Reports: fever(s), fatigue and malaise Card: Reports: chest pain Resp: Denies: dyspnea GI: Reports: abdominal pain : Denies: flank pain Musc: Denies: back pain Neuro: Denies: headache(s) Medications/Allergies Home Medications Medication Instructions Recorded Confirmed Last Taken Type No Known Home Medications 10/30/23 10/30/23 Unknown History Allergies Allergy/AdvReac Type Severity Reaction Status Date / Time No Known Allergies Allergy Verified 10/30/23 18:44 Current Medications Generic Name Dose Route Start Last Admin Trade Name Jarekq PRN Reason Stop Dose Admin Aspirin 81 mg 10/31/23 09:00 10/31/23 10:30 Aspirin 81 Mg Ec Tablet PO 81 mg DAILY WOLFGANG Administration Clopidogrel Bisulfate 75 mg 10/31/23 09:00 10/31/23 10:31 Clopidogrel 75 Mg Tablet PO 75 mg DAILY WOLFGANG Administration Enoxaparin Sodium 40 mg 10/30/23 22:00 10/30/23 22:04 Enoxaparin 40 Mg/0.4 Ml Syringe SUBCUT 40 mg BEDTIME WOLFGANG Administration Dopamine HCl/Dextrose 400 mg in 250 mls @ 14.203 mls/hr 10/30/23 20:15 10/31/23 07:19 Intropin Drip IV 15 mcg/kg/min CONT WOLFGANG 42.61 mls/hr Administration Protocol 5 MCG/KG/MIN Sodium Chloride 1,000 mls @ 100 mls/hr 10/30/23 21:45 10/31/23 05:12 Sodium Chloride 0.9% IV 100 mls/hr .Q10H WOLFGANG Administration Piperacillin Sod/Tazobactam 50 mls @ 12.5 mls/hr 10/31/23 11:00 10/31/23 11:08 Sod 3.375 gm/ Sodium Chloride IV 12.5 mls/hr Q8H WOLFGANG Administration PFSH Acute PFSH: Medical History (Updated 10/31/23 @ 13:48 by Prince Sales MD) Transaminitis Cholecystitis Myocardial infarction, inferior wall CAD (coronary artery disease) Vitals/I&O/Wt Last Vital Signs Temp 98.1 F 10/30/23 22:15 Pulse 117 H 10/31/23 07:45 Resp 24 H 10/30/23 22:45 BP 116/88 10/30/23 22:45 Pulse Ox 90 10/31/23 07:45 O2 Del Method Room Air 10/31/23 07:45 10/30/23 10/31/23 10/31/23 22:59 06:59 14:59 Intake Total 1999 / 1999 1096.093 / 3096.093 272.282 / 272.282 Output Total 100 / 100 450 / 550 Balance 1900 / 1900 646.093 / 2546.093 272.282 / 272.282 Weight last 48 hrs Weight 76.476 kg Weight 75.977 kg Weight 75.75 kg Physical Exam Const: COMMON NORMALS: no acute distress and patient oriented x3 HENMT: COMMON NORMALS: normocephalic HEAD & SCALP: normocephalic Eye: COMMON NORMALS: Equal, round and reactive pupils present PUPIL: Yes Equal, round and reactive pupils present Resp: COMMON NORMALS: normal respiratory effort, No retractions, No use of accessory muscles and clear to auscultation bilaterally AUSCULTATION: clear to auscultation bilaterally Cardio: COMMON NORMALS: regular rhythm, S1 normal heart sound present and S2 normal heart sound present RHYTHM: regular rhythm HEART SOUNDS: S1 normal heart sound present and S2 normal heart sound present GI: OTHER: abdomen soft, distended, RUQ pain to palpation, epigastrum tender to palpations, no guarding, no rebound, no rigidity Extremity: COMMON NORMALS: no calf tenderness Neuro: COMMON NORMALS: patient oriented x3, CN's II-XII intact bilaterally and moves all extremities Psych: COMMON NORMALS: mental status grossly normal Urinary Catheter Management: Smith: Cath Placed During This Visit: yes Reason for Continuing Indwelling Catheter: Accurate Measurement of Urinary Output in Critically Ill Patients Urinary Catheter Date of Insertion: 10/30/23 Urinary Catheter Time of Insertion: 21:35 Sepsis: Is patient septic: Yes Focused sepsis exam performed: Yes Focused sepsis exam: dp/pt pulses diminished bilaterally, no mottling, cap refill>2 seconds Data 10/31/23 04:03 10/31/23 04:03 Micro: Microbiology 10/30/23 19:47 Blood Culture - Preliminary Blood SPECIMEN COLLECTED 10/30/23 19:45 Blood Culture - Preliminary Blood SPECIMEN COLLECTED A&P Assessment and plan (1) Septic shock: CT abdomen and pelvis IMPRESSION: 1. Gallbladder is distended associated with pericholecystic fluid stranding and regions of possible gallbladder wall thickening. Findings raise concern for acute cholecystitis. Consider right upper quadrant ultrasound for further evaluation as clinically warranted. 2. Mild peripancreatic hazy stranding raises concern for acute pancreatitis. Please correlate with pancreatic laboratory values. gallbladder ultrasound US/US abdomen limited [id number] IMPRESSION: Suspect acute cholecystitis with possible gangrene -concern for gallstone pancreatitis -concern for acute cholecystitis possibly gangrenous, need for cholecystosotomy tube placement, high risk of bleeding on aspirin and plavix which cannot be held due to recent RCA stent placment need for IR -concern for acute ascending cholangitis due CBD dilatation, need for GI/ERCP PLAN: -keep npo -coutinue vancomycin -coutinue zosyn -coutinue dopamine -serial abdominal exam -coutinue normal saline (2) Acute gangrenous cholecystitis: (3) Ascending cholangitis: (4) ST elevation (STEMI) myocardial infarction: Qualifiers: Involved coronary artery: unspecified coronary artery Qualified Code(s): I21.3 - ST elevation (STEMI) myocardial infarction of unspecified site (5) CAD (coronary artery disease): Diagnostic Cath Status: Emergency Diagnostic Findings * Patient who does not see doctors arrived at the emergency room under a STEMI alert. EKG showed old anterior wall myocardial infarction and Q waves in leads II, III and aVF. Patient was not having chest pain but mild abdominal pain. She was mildly hypotensive with a blood pressure of 90/60. Her initial troponin was almost 4000 and she had already developed elevated LFTs. My initial impression was that she had completed a subacute inferior wall myocardial infarction with Q waves, elevated LFTs and elevated troponin to a significant degree. An EKG sometime after she arrived in the emergency room showed acute ST elevation which was new and the inferior leads. It was then my impression that she was extending the infarct so I decided to take her to the cardiac catheterization laboratory. * Coronary angiography reveals right coronary artery dominance. The right coronary artery is occluded in the proximal to midportion. I placed a guide and a wire and was able to get some flow down the vessel initially. It was barely WENDIE I flow. There was significant atherosclerosis throughout the artery. There was also a modest amount of thrombus burden. The left coronary artery system is small. The left main contains a modest to significant lesion in the ostium. There was ventricularization and damping of the pressure waveform upon insertion of the catheter. I was therefore only able to take 2 or 3 views of the left system. The LAD is patent with a good-sized diagonal branch. In the midportion of the LAD just past the diagonal there is a 70 to 80% stenosis. I do not see any previously placed stents as the patient had told me she has. Circumflex is small and there is a 95% ostial lesion in the circumflex. PCI Status: Emergency PCI Indication: Immediate PCI for STEMI Interventional Findings * I placed a guide to the right coronary artery. A wire was placed to the distal vessel with relative ease. Initially started with a 3 mm balloon. I did an angioplasty of the proximal and mid vessel. I then switched this out for a longer 2.5 mm balloon and angioplastied the artery all the way from the distal to the ostial edges. This provided some increase in flow. There was significant atherosclerosis of the entire vessel. There was also a modest thrombus burden. Once reestablishing flow which was only WENDIE I flow I placed a 3 x 16 mm stent in the proximal to midportion. The distal edge of the stent caused what is probably a small edge dissection with a pinching of the artery. I then stented this with a 2.5 x 8 mm stent. In the end there was reasonable WENDIE II flow. Conclusions 1. Occlusion of the right coronary artery, probably several hours old with near completion of the infarct and then extension of the infarct and occlusion of the right coronary artery. This underwent angioplasty and stenting with reestablishment of WENDIE II flow. Significant left main disease with ventricularization and dampening of the pressure waveform. Significant mid LAD and ostial circumflex disease. -on aspirin -on plavix -on dopamine drip (6) Metabolic acidosis: (7) Lactic acidosis: (8) Transaminitis: (9) UTI (urinary tract infection): (10) Ischemic cardiomyopathy: (11) EDDIE (acute kidney injury): (12) Cardiogenic shock: (13) Cholecystitis: Plan -received 40mg lovenox for dvt prophylaxis last night, will hold for now given need for cholecystostomy tube placement -full code -transfer to [facility], Coding Level of Care Code Critical Care >/= 30 minutes Critical care time (in minutes): 45 The high probability of a clinically significant, sudden or life threatening deterioration, as referenced in this documentation, required my full and direct attention, intervention and personal management. The critical care time shown is in addition to time spent performing any reported separately billable procedures and includes the following: [x] Data and vital sign review and interpretation [x] Patient assessment, examination and intervention [x] Medication orders and management [x] Patient/Family updates as able [x] Care Coordination and Documentation. Diagnoses Septic shock A41.9; R65.21 Acute gangrenous cholecystitis K81.[address] elevation (STEMI) myocardial infarction I21.3 Involved coronary artery: unspecified coronary artery CAD (coronary artery disease) I25.10 Metabolic acidosis E87.20 Lactic acidosis E87.20 Transaminitis R74.01 UTI (urinary tract infection) N39.0 Ischemic cardiomyopathy I25.5 EDDIE (acute kidney injury) N17.9 Cardiogenic shock R57.0 Cholecystitis K81.9
[2023-10-31] MEDS: DOPamine drip 400 MG/250 ML PREMIX 35.51 MG IV (12:02)
[2023-10-31] MEDS: vancomycin 1,000 MG in sodium chloride 0.9% 250 ML 250 MG IV (12:03)
--- NOTE | 2023-10-31 12:08 | PM.TDS ---
Transfer Summary Providers Date of Admission: 10/30/23 21:41 Date of Discharge/Transfer: 10/31/23 Attending Provider at Admission: Beni Sunshine MD Attending Provider at Transfer: Beni Sunshine MD Transfer Plans: Anticipated date of transfer: 10/31/23. Diagnoses at Discharge Discharge Diagnosis (1) CAD (coronary artery disease): Status: Acute (2) Myocardial infarction, inferior wall: Status: Acute (3) Cholecystitis: Status: Acute (4) Transaminitis: Status: Acute Reason for Visit Reason for Visit STEMI ALERT Hospital Course Hospital Course Venessa Tyson is a 73 year old female with a past medical history of CAD, history of stenting in 2008 who presents to [facility] for right upper quadrant abdominal pain. Currently patient is alert oriented x 4, following all commands, she is on 10 of dopamine, blood pressure 116/88, pulse is 110, sinus tachycardia, respiratory rate 20, she is 90% on room air, temperature 98.1. Patient tells me for the last 2 weeks she has been experiencing abdominal pain, right upper quadrant pain, nausea, vomiting, feeling unwell, she is also been experiencing intermittent chest pain, she tells me that she came to the emergency room this evening due to severe right upper quadrant abdominal pain that was unrelenting. -Ambulance was called out to patient home, ambulance called STEMI alert ? In the emergency room she was found to have Q waves in leads II, III, aVF, V3 through V6, minimal ST elevations lead 3 and aVF -Initial concern was for old anterior wall myocardial infarction as evidenced by Q waves in leads V3 to V6 ? While in the emergency room another EKG obtained at [address] elevation in lead III, aVF with ST depressions in leads I V2, V3, baseline troponin 3889 -There was concerns for previous anterior wall MN and a newly completed inferior wall MN with extension -Patient was taken to the Collision Technician, had 2 stents placed to RCA, moved to the ICU on a dopamine drip ? Monitor in ICU on the dopamine drip, ? CT scan in the emergency room shows gallbladder is distended associated with pericholecystic fluid stranding and regions of possible gallbladder wall thickening, findings raising the concern of acute cholecystitis, with mild peripancreatic hazy stranding raising concern for acute pancreatitis ? WBC in the emergency room 26,000, neutrophilic, lactic acid 9.7, down to 2.3, creatinine 1.4, bili is 5.9, AST 94, ALT 50, alk phos 464, lipase over 12,000, CRP 184, Pro-Jovanny 0.94, UA showing evidence of UTI -General surgery was consulted by cardiology, for concerns for acute cholecystitis, concerns for gallstone pancreatitis, general surgery recommended cholecystostomy tube placement, IR -Given recent history of stent placement patient's aspirin Plavix, our radiology service feels patient is a high risk of bleeding, high risk of complications for IR guided cholecystostomy tube placement, recommended transfer to tertiary level center after discussion with radiology and general surgery -Hospitalist team was consulted in the morning at about 11 AM by household appliance assembler -I reviewed the case in detail at about 11 AM, -Patient was seen immediately therafter -Patient was examined, she denies any chest pain, does report severe right upper quadrant pain, no shortness of breath, does report fatigue, malaise, does report feeling feverish, feeling nauseous ? I did detailed discussion with patient what I think likely has happened disease?for the last 2 weeks she was dealing with her acute cholecystitis, and likely what happens at she developed gallstone pancreatitis, and sepsis and septic shock, there was no reason the reason she probably ended up in the hospital, given her underlying CAD, at the same time she developed an cardiac stress because of the gallstone pancreatitis, without cardiac stress likely resulted in an STEMI -The other concern I had was for a common bile duct stone, although the CT scan shows that the CBD is mildly prominent 8.4 mm, she could possibly have a common bile duct stone, and have features of acute ascending cholangitis, nonetheless we do not have any GI capabilities here at [facility], we do not have any gastroenterology ERCP capability, would recommend for her to be transferred to tertiary level center for consideration -Nonetheless when I am concerned about is her gallstone pancreatitis, and her gangrenous cholecystitis ? Given that now she is on aspirin and Plavix, she is a high risk for a cholecystectomy, high risk of cholecystostomy tube placement -I spoke to interventional radiology, given that patient is on aspirin Plavix she is a high bleeding risk, and she would be a complicated procedure given her gangrenous cholecystitis, they felt that patient would be better served at a tertiary level center that would offer more specialists, and interventions available to patient's if she were to develop bleeding ? Spoke to cardiology, Dr. Sunshine, patient needs to be on aspirin, Plavix, certainly it could be held for a procedure, but given 2 RCA stents being placed, her ischemic cardiomyopathy is a very high risk to hold antiplatelet therapy, it certainly is a difficult situation given that she needs to have surgical intervention for gangrenous cholecystitis ? Given patient's complicated situation, she would be better served nutrition [facility], I could place the cholecystostomy tube and could have IR backup/general surgery backup in the case that she would have any bleeding ? I have already spoken to general surgery, their concern was asked with IR with bleeding for cholecystostomy tube placement, but in addition there was concern for common bile duct stone and the need for ERCP procedure over which we do not have here at [facility] ? Spoke to [facility] transfer line, need for transfer for high risk cholecystostomy tube placement high risk of bleeding, needs IR, needs general surgery, needs gastroenterology for consideration of possible ERCP procedure for concern for possible CBD dilatation common bile duct stone ? Patient's pain is septic Spoke to certified breastfeeding educator at [facility], accepted transfer, to certified breastfeeding educator at [facility], accepted to transfer, to ICU, certified breastfeeding educator at [facility], accepted transfer, to ICU, Patient was reexamined, he is on 12 dopamine, alert, awake, on room air, npo, discussed transfer, she agrees to transfer to [facility] Physical Exam Const: COMMON NORMALS: no acute distress Neck/C-Spine: COMMON NORMALS: no JVD Resp: COMMON NORMALS: normal respiratory effort, No retractions, No use of accessory muscles and clear to auscultation bilaterally AUSCULTATION: clear to auscultation bilaterally Cardio: COMMON NORMALS: no JVD, regular rate, regular rhythm, S1 normal heart sound present and S2 normal heart sound present RATE: regular rate RHYTHM: regular rhythm HEART SOUNDS: S1 normal heart sound present and S2 normal heart sound present GI: COMMON NORMALS: Normal to inspection, nondistended, normoactive bowel sounds present Extremity: COMMON NORMALS: no pedal edema Urinary Catheter Management: Smith: Cath Placed During This Visit: yes Reason for Continuing Indwelling Catheter: Accurate Measurement of Urinary Output in Critically Ill Patients Urinary Catheter Date of Insertion: 10/30/23 Urinary Catheter Time of Insertion: 21:35 TS Data Studies Completed and Pending Pending at discharge Category Date Time Status Blood Culture Stat Lab 10/30/23 19:47 Results Urine Culture Stat Lab 10/30/23 21:56 Received US abdomen limited [id number] Routine Ultrasound 10/31/23 06:43 Taken Completed Studies During Hospitalization Category Date Time Status CT chest abdomen pelvis [CT chest abdpel w/*[id number] Cat Scan 10/30/23 18:56 Completed ] Stat TAX ASSESSOR request for service Stat Exams 10/30/23 18:41 Completed CV. echo complete* [id number] Stat Ultrasound 10/31/23 19:37 Completed Laboratory Last Values WBC 27.64 10^3/uL (3.29-11.43) H 10/31/23 04:03 RBC 3.85 10^6/uL (3.85-5.65) 10/31/23 04:03 Hgb 12.30 g/dL (11.27-16.99) 10/31/23 04:03 Hct 35.5 % (36-47) L 10/31/23 04:03 MCV 92.2 fl (85-98) 10/31/23 04:03 MCH 31.9 pg (27-33) 10/31/23 04:03 MCHC 34.6 g/dL (30-55) 10/31/23 04:03 RDW 14.2 % (12.1-15.1) 10/31/23 04:03 Plt Count 258 10^3/cmm (157-399) 10/31/23 04:03 MPV 9.3 fL (7.4-10.4) 10/31/23 04:03 Neut % (Auto) 93.4 % 10/31/23 04:03 Lymph % (Auto) 3.0 % 10/31/23 04:03 Hayes % (Auto) 2.2 % 10/31/23 04:03 Eos % (Auto) 0.0 % 10/31/23 04:03 Baso % (Auto) 0.4 % 10/31/23 04:03 Neut # (Auto) 25.82 10^3/uL (1.8-7.7) H 10/31/23 04:03 Lymph # (Auto) 0.8 10^3/uL (0.8-4.8) 10/31/23 04:03 Hayes # (Auto) 0.6 10^3/uL (0.2-0.9) 10/31/23 04:03 Eos # (Auto) 0.0 10^3/uL (0.0-0.8) 10/31/23 04:03 Baso # (Auto) 0.1 10^3/uL (0.0-0.1) 10/31/23 04:03 Nucleated RBC % (auto) 0 % 10/31/23 04:03 Nucleated RBCs # 0.0 /100WBC 10/31/23 04:03 Sodium 129 mmol/L (136-145) L 10/31/23 04:03 Potassium 3.6 mmol/L (3.5-5.1) 10/31/23 04:03 Chloride 100 mmol/L (98-107) 10/31/23 04:03 Carbon Dioxide 14 mmol/L (22-29) L 10/31/23 04:03 Anion Gap 18.6 (5-19) 10/31/23 04:03 BUN 22 mg/dL (8-23) 10/31/23 04:03 Creatinine 1.1 mg/dL (0.5-0.9) H 10/31/23 04:03 GFR Calculation Not Reportable 10/31/23 04:03 Glucose 215 mg/dL (65-115) H 10/31/23 04:03 Calculated Osmolality 278 mOsm/kg (285-295) L 10/31/23 04:03 Lactic Acid 9.7 mmol/L (0.5-2.2) H* 10/30/23 18:20 Lactic Acid (Sepsis) 2.3 mmol/L (0.5-2.2) H 10/30/23 23:55 Calcium 7.0 mg/dL (8.5-10.5) L 10/31/23 04:03 Magnesium 1.7 mg/dL (1.7-2.3) 10/30/23 18:20 Total Bilirubin 5.9 mg/dL (0.15-1.2) H 10/30/23 18:20 AST 94 U/L (0-32) H 10/30/23 18:20 ALT 50 U/L (0-33) H 10/30/23 18:20 Alkaline Phosphatase 464 U/L (35-105) H 10/30/23 18:20 Troponin T Baseline 3889 ng/L (0-10) H* 10/30/23 18:20 Troponin T 120 Minute 3096 ng/L (0-10) H 10/30/23 20:17 Delta Troponin T -793 ABS# (0-10) L 10/30/23 20:17 Troponin T Hi Sens 6Hr 3038 ng/L (0-10) H 10/30/23 23:55 Troponin T Hi Sens 6Hr Delta -851 ng/L (0-12) L 10/30/23 23:55 C-Reactive Protein 184.1 mg/L (0.0-4.9) H 10/30/23 18:20 Total Protein 7.5 g/dL (6.6-8.7) 10/30/23 18:20 Albumin 2.9 g/dL (3.5-5.2) L 10/30/23 18:20 Globulin 4.6 g/dL (1.3-4.6) 10/30/23 18:20 Lipase 05241 U/L (13-60) H 10/30/23 18:20 Procalcitonin 0.94 ng/mL (0-0.5) H 10/30/23 18:20 Urine Color Yellow (Yellow) 10/30/23 21:56 Urine Appearance Turbid (CLEAR) A 10/30/23 21:56 Urine pH 5 (5-7) 10/30/23 21:56 Ur Specific [place] 1.010 (1.005-1.030) 10/30/23 21:56 Urine Protein 1+ (Negative) H 10/30/23 21:56 Urine Glucose (UA) Norm (Normal) 10/30/23 21:56 Urine Ketones 1+ (Negative) H 10/30/23 21:56 Urine Blood Neg (Negative) 10/30/23 21:56 Urine Nitrate Negative (Negative) 10/30/23 21:56 Urine Bilirubin 2+ (Negative) H 10/30/23 21:56 Urine Urobilinogen 4 mg/dL (Negative) H 10/30/23 21:56 Ur Leukocyte Esterase Trace (Negative) H 10/30/23 21:56 Urine RBC 5-10 /hpf (0-2) H 10/30/23 21:56 Urine WBC 15-25 /hpf (0-5) H 10/30/23 21:56 Ur Squamous Epith Cells None /hpf (0-5) 10/30/23 21:56 Ur Transition Epith Cell 0-4 /hpf 10/30/23 21:56 Amorphous Sediment 1+ /hpf 10/30/23 21:56 Urine Bacteria 3+ /hpf (NONE) H 10/30/23 21:56 Coarse Granular Casts 0-4 /lpf H 10/30/23 21:56 Urine Mucus 2+ /hpf 10/30/23 21:56 Radiology Impressions Chest/Abdomen/Pelvis CT 10/30/23 18:56 IMPRESSION: 1. There are scattered regions of bilateral subpleural interstitial thickening, greatest at the lung bases, suggestive of pulmonary fibrosis. 2. Mild cardiomegaly. 3. Multivessel atherosclerotic disease which involves the coronary arteries. IMPRESSION: 1. Gallbladder is distended associated with pericholecystic fluid stranding and regions of possible gallbladder wall thickening. Findings raise concern for acute cholecystitis. Consider right upper quadrant ultrasound for further evaluation as clinically warranted. 2. Mild peripancreatic hazy stranding raises concern for acute pancreatitis. Please correlate with pancreatic laboratory values. 3. There is mucosal thickening at the hepatic flexure colon and duodenum adjacent to the gallbladder which may be reactive in nature. Nonspecific enteritis is a possibility as well. 4. Chronic defects are present through the bilateral L5 pars interarticularis. There is resultant grade 1 spondylolisthesis at L5-S1 with bilateral neural foramina narrowing. 5. Moderate T9 anterior compression fracture. Recent Clincial Data Last Vital Signs Temp 98.1 F 10/30/23 22:15 Pulse 117 H 10/31/23 07:45 Resp 24 H 10/30/23 22:45 BP 116/88 10/30/23 22:45 Pulse Ox 90 10/31/23 07:45 O2 Del Method Room Air 10/31/23 07:45 Vital Signs Pulse Pulse Ox O2 Del Method 10/31/23 07:45 117 H 90 Room Air 10/31/23 05:41 117 H Intake & Output/Weight 10/29/23 10/30/23 10/31/23 11/01/23 06:59 06:59 06:59 06:59 Intake Total 3096.093 / 3096.093 473.259 / 473.259 Output Total 550 / 550 Balance 2546.093 / 2546.093 473.259 / 473.259 Weight 76.476 kg Vitals Last Vital Signs Temp 98.1 F 10/30/23 22:15 Pulse 117 H 10/31/23 07:45 Resp 24 H 10/30/23 22:45 BP 116/88 10/30/23 22:45 Pulse Ox 90 10/31/23 07:45 O2 Del Method Room Air 10/31/23 07:45 TS Medications Medications Acetaminophen (Acetaminophen 325 Mg Tablet) 650 mg PO Q6H PRN PRN Reason: MILD PAIN Al Hydrox/Mg Hydrox/Simethicone (Ozmx-Bnn-Ijjcqffzv-Ayden 30 Ml Udc) 30 ml PO Q15M PRN PRN Reason: INDIGESTION Alprazolam (Alprazolam 0.5 Mg Tablet) 0.25 mg PO TID PRN PRN Reason: ANXIETY Aspirin (Aspirin 81 Mg Ec Tablet) 81 mg PO DAILY [facility] Last Admin: 10/31/23 10:30 Dose: 81 mg Atropine Sulfate (Atropine 1 Mg/Ml Sdv 1 Ml) 0.5 mg IVP PRN PRN PRN Reason: Symptomatic bradycardia Clopidogrel Bisulfate (Clopidogrel 75 Mg Tablet) 75 mg PO DAILY [facility] Last Admin: 10/31/23 10:31 Dose: 75 mg Enoxaparin Sodium (Enoxaparin 40 Mg/0.4 Ml Syringe) 40 mg SUBCUT BEDTIME [facility] Last Admin: 10/30/23 22:04 Dose: 40 mg Dopamine HCl/Dextrose (Intropin Drip) 400 mg in 250 mls @ 14.203 mls/hr IV CONT [facility]; Protocol Last Admin: 10/31/23 12:02 Dose: 12.5 mcg/kg/min, 35.51 mls/hr Sodium Chloride (Sodium Chloride 0.9%) 1,000 mls @ 100 mls/hr IV .Q10H [facility] Last Admin: 10/31/23 05:12 Dose: 100 mls/hr Piperacillin Sod/Tazobactam (Sod 3.375 gm/ Sodium Chloride) 50 mls @ 12.5 mls/hr IV Q8H [facility] Last Admin: 10/31/23 11:08 Dose: 12.5 mls/hr Vancomycin HCl 1,000 mg/ (Sodium Chloride) 250 mls @ 250 mls/hr IV Q24H [facility] Last Admin: 10/31/23 12:03 Dose: 250 mls/hr Magnesium Hydroxide (Magnesium Hydroxide 30 Ml Udc) 30 ml PO DAILY PRN PRN Reason: CONSTIPATION Naloxone HCl (Naloxone 0.4 Mg/Ml Sdv) 0.1 mg IVP Q2M PRN PRN Reason: RESPIRATORY RATE < 8/MIN Nitroglycerin (Nitroglycerin 0.4 Mg Sublingual Tablet) 0.4 mg SUBLINGUAL Q5M PRN PRN Reason: CHEST PAIN Temazepam (Temazepam 15 Mg Capsule) 15 mg PO BEDTIME PRN PRN Reason: INSOMNIA Discontinued Medications Aspirin (Aspirin 325 Mg Tablet) 325 mg PO ONCE ONE Stop: 10/30/23 18:42 Last Admin: 10/30/23 18:50 Dose: Not Given Clopidogrel Bisulfate (Clopidogrel 300 Mg Tablet) 600 mg PO ONCE ONE Stop: 10/30/23 18:42 Last Admin: 10/30/23 18:48 Dose: 600 mg Fentanyl (Fentanyl 50 Mcg/Ml Inj 2ml) Confirm Administered Dose 100 mcg .ROUTE .STK-MED ONE Stop: 10/30/23 20:17 Heparin Sodium (Porcine) (Heparin 5,000 Unit/Ml Inj 1 Ml) 4,000 unit IVP ONCE ONE Stop: 10/30/23 18:42 Last Admin: 10/30/23 18:48 Dose: 4,000 unit Heparin Sodium (Porcine) (Heparin 5,000 Unit/Ml Inj 1 Ml) Confirm Administered Dose 5,000 unit .ROUTE .STK-MED ONE Stop: 10/30/23 20:19 Heparin Sodium (Porcine) (Heparin 5,000 Unit/Ml Inj 1 Ml) Confirm Administered Dose 5,000 unit .ROUTE .STK-MED ONE Stop: 10/30/23 20:57 Sodium Chloride (Sodium Chloride 0.9%) 1,000 mls @ 999 mls/hr IV .Q1H1M ONE Stop: 10/30/23 20:02 Last Infusion: 10/30/23 20:14 Dose: Infused Sodium Chloride (Sodium Chloride 0.9%) 1,000 mls @ 999 mls/hr IV .Q1H1M ONE Stop: 10/30/23 20:42 Last Infusion: 10/30/23 20:48 Dose: Infused Lidocaine HCl (Xylocaine) Confirm Administered Dose 20 mls @ as directed .ROUTE .STK-MED ONE Stop: 10/30/23 20:18 Sodium Chloride (Sodium Chloride 0.9%) Confirm Administered Dose 1,000 mls @ as directed .ROUTE .STK-MED ONE Stop: 10/30/23 20:31 Ampicillin Sodium/Sulbactam (Sodium 1.5 gm/ Sodium Chloride) 50 mls @ 150 mls/hr IV Q6H [facility]; Protocol Last Infusion: 10/31/23 10:05 Dose: Infused Piperacillin Sod/Tazobactam (Sod / Sodium Chloride) 50 mls @ 0 mls/hr [id number] CONT [facility]; Protocol Vancomycin HCl / Sodium (Chloride) 250 mls @ 0 mls/hr [id number] PROTOCOL [facility]; Protocol Iohexol (Iohexol 350 Mg/Ml 500 Ml Btl (Per Ml)) 0 ml IV ONCE ONE Stop: 10/30/23 19:37 Last Admin: 10/30/23 19:36 Dose: 88 ml Metoprolol Tartrate (Metoprolol Tartrate 1 Mg/1 Ml Sdv 5 Ml) 2.5 mg IVP ONCE ONE Stop: 10/30/23 18:44 Midazolam HCl (Midazolam 1 Mg/Ml Inj 2 Ml) Confirm Administered Dose 2 mg .ROUTE .STK-MED ONE Stop: 10/30/23 20:17 Morphine Sulfate (Morphine 4 Mg/Ml Sdv 1 Ml) 4 mg IVP ONCE ONE Stop: 10/30/23 18:44 Ondansetron HCl (Ondansetron 2 Mg/Ml Sdv 2 Ml) Confirm Administered Dose 4 mg .ROUTE .STK-MED ONE Stop: 10/30/23 21:25 Allergies No Known Allergies Allergy (Verified 10/30/23 18:44) Home Medications No Known Home Medications 10/30/23 [History Confirmed 10/30/23] Discharge Plan Discharge Patient Disposition: Home Condition: Stable Prescriptions: No Action No Known Home Medications Patient Instructions: Opioid Safety Transfer Attestations Time Spent in Transfer Care: critical care time Critical Care Time (min): 45 Quality Metrics Clinical Quality Measures [ Acute Myocardial Infaction { Clinical Trial Participant: No; Contraindication to aspirin: None; Aspirin prescribed; Contraindication to statin: None; Statin prescribed; Contraindication to PCI: None; PCI performed;}. No reported AMI, CVA or VTE this stay] Coding Level of Care Code Critical Care >/= 30 minutes Critical care time (in minutes): 45 The high probability of a clinically significant, sudden or life threatening deterioration, as referenced in this documentation, required my full and direct attention, intervention and personal management. The critical care time shown is in addition to time spent performing any reported separately billable procedures and includes the following: [x] Data and vital sign review and interpretation [x] Patient assessment, examination and intervention [x] Medication orders and management [x] Patient/Family updates as able [x] Care Coordination and Documentation. Diagnoses CAD (coronary artery disease) I25.10 Myocardial infarction, inferior wall I21.19 Cholecystitis K81.9 Transaminitis R74.01
[2023-10-31 13:45] LABS: Basophils # 0.1 10^3/uL (0.0-0.1); Basophils % 0.4 %; Hematocrit 36.7 % (36-47); Lymphocytes # 0.9 10^3/uL (0.8-4.8); Lymphocytes % 4.8 %; Mean Corpuscular HGB Conc 32.7 g/dL (30-55); Mean Corpuscular Volume 94.8 fl (85-98); Mean Platelet Volume 9.4 fL (7.4-10.4); Monocytes # 0.7 10^3/uL (0.2-0.9); Monocytes % 3.5 %; Neutrophils # 16.84 10^3/uL (1.8-7.7); Neutrophils % 90.4 %; Nucleated Red Blood Cells % 0 %; Platelet Count 247 10^3/cmm (157-399); Red Blood Count 3.87 10^6/uL (3.85-5.65); Red Cell Distribution Width 14.7 % (12.1-15.1); White Blood Count 18.63 10^3/uL (3.29-11.43)
[2023-10-31 14:01] LABS: Alanine Aminotransferase 50 U/L (0-33); Albumin Level 2.1 g/dL (3.5-5.2); Alkaline Phosphatase 359 U/L (35-105); Anion Gap 16.7 (5-19); Aspartate Amino Transferase 104 U/L (0-32); Blood Urea Nitrogen 22 mg/dL (8-23); C Reactive Protein 240.7 mg/L (0.0-4.9); Calcium 7.3 mg/dL (8.5-10.5); Carbon Dioxide 18 mmol/L (22-29); Chloride 99 mmol/L (98-107); Creatinine Clr Calc Pharmacy 42.4204; Globulin 4.2 g/dL (1.3-4.6); Glucose 216 mg/dL (65-115); Magnesium 1.5 mg/dL (1.7-2.3); Osmolality Calculated 280 mOsm/kg (285-295); Phosphorus 2.8 mg/dL (2.5-4.5); Potassium 3.7 mmol/L (3.5-5.1); Sodium 130 mmol/L (136-145); Total Bilirubin 5.2 mg/dL (0.15-1.2); Total Protein 6.3 g/dL (6.6-8.7)
[2023-10-31 14:07] LABS: Procalcitonin 12.35 ng/mL (0-0.5)
[2023-10-31 14:08] LABS: Lactate (Lactic Acid level) 4.3 mmol/L (0.5-2.2)
[2023-10-31 14:13] LABS: Lipase 2661 U/L (13-60)
[2023-10-31] MEDS: magnesium sulfate premix 1 GM/100 ML PIGGYBACK IV (14:36)
[2023-10-31] MEDS: sodium bicarbonate 8.4% 1 mEq/mL 50mL Syr 50 MEQ IVP (14:36)
--- NOTE | 2023-10-31 15:05 | PC.NURSE ---
Report called to Tayla Dela Cruz RN.
--- NOTE | 2023-10-31 15:08 | PC.NURSE ---
Family notified of transfer. At bedside
[2023-10-31 15:15] LABS: Estmated Average Glucose 151; Hemoglobin A1C 6.9 % (4.0-6.0)
[2023-10-31] MEDS: DOPamine drip 400 MG/250 ML PREMIX 28.41 MG IV (15:41)
--- NOTE | 2023-10-31 16:02 | PC.NURSE ---
[facility] transporting patient to [facility]. Report to Bubba BARBOSA, Miller [place].
--- NOTE | 2023-10-31 16:16 | P.CONIM_ITS ---
Providers/Reason For Consult 2 Consulting Physician/Specialty*: Wei Fournier MD general surgery Reason for Consult*: Evaluate for acute cholecystitis Requesting Physician: Beni Sunshine MD cardiology Attending Physician: Beni Sunshine MD History of Present Illness History of Present Illness Venessa Tyson is a 73 year old female who has had symptoms of acute cholecystitis and come to ER and found to be having acute MD and underwent emergent PCTA. CT scan of abdomen showed acute cholecystitis with elevated WBC in 20k. US done today does not show gallstone but evidence of severe gb infection with debris in lumen and could not rule out CBD stone with some dilation and dilation of central ducts on CT scan. HIDA scan can not be done emergently because need to get radioactive injection. Was hoping to get this prior to getting percutaneous drainage of GB per IR. Patient is on plavix and aspirin and prophylactic doses of lovenox. I talked to Dr. Newman in radiology who does sometimes some IR. She feels patient is too high risk to do here because of bleeding problems which might require embolization which she does not do. Also she may have CBD stone which we do not have. Right now she has acalculous cholecystitis likely from MD. She may have CBD stone. If she truly has acalculous cholecystitis she does not necessarily need cholecystectomy even if percutaneous drain is placed. Review of Systems 2 Narrative: Constitutional: denies rigors, singnificant weight gain, increased appetite HEENT: denies chronic cough, blurry vision, excessive tearing, eye pain, flashing lights, odynophagia, painful mastication, change in voice, change in taste, chronic sore throat, hypersalivation Heart: denies racing heart, palpitations, othropnea, PND Lungs: denies hemoptysis, pain with deep inspiration, chronic bronchitis GI: denies hematemesis, hematochezia, dysphagia, tenesmus : denies polyuria, hematuria, painful micturation Musculoskeletal: denies hemarthrosis, Muscle wasting, change in amubation Neuro: denies new onset syncope, dysesthesia, dysequilibrium, ptosis eyelid or face SKin: denies new onset hyperalgia, new rash new cyanosis Endocrine: denies new polyuria, polydipsia, polyphagia, heat intolerance, excessive energy Hem/Onc: denies new petechiae, swollen glands, new excessive epstaxis Psych: denies racing thought Medications/Allergies Home Medications Medication Instructions Recorded Confirmed Last Taken Type No Known Home Medications 10/30/23 10/30/23 Unknown History Allergies Allergy/AdvReac Type Severity Reaction Status Date / Time No Known Allergies Allergy Verified 10/30/23 18:44 PFSH Acute 2 PFSH: Medical History (Updated 10/31/23 @ 13:48 by Prince Sales MD) Transaminitis Cholecystitis Myocardial infarction, inferior wall CAD (coronary artery disease) Vitals/I&O/Wt Last Vital Signs Temp 98.1 F 10/31/23 16:06 Pulse 107 H 10/31/23 16:06 Resp 34 H 10/31/23 16:06 BP 110/75 10/31/23 16:06 Pulse Ox 94 10/31/23 16:06 O2 Del Method Room Air 10/31/23 15:00 10/31/23 10/31/23 10/31/23 06:59 14:59 22:59 Intake Total 1096.093 / 3096.093 863.810 / 863.810 131.251 / 995.061 Output Total 450 / 550 300 / 300 Balance 646.093 / 2546.093 563.810 / 563.810 131.251 / 695.061 Weight last 48 hrs Weight 168 lb 9.6 oz Weight 167 lb 8 oz Weight 167 lb Physical Exam 2 Narrative: Patient is a well developed well nourished and in NAD and is afebrile with vitals stable and is answering questions appropriately with a normal affect and is alert and oriented x3 HEENT: normocephalic with normal external ears and nonicteric, oral mucosa moist and dentition normal for age, trachea midline with no large masses visualized Heart: RRR, no gallops murmurs or rubs, normal PMI with no thrills Lungs: normal excursions, no loud audible wheezing, no subcutaneous emphysema Abdomen: nondistended, no gross hepatosplenomegaly, no masses, no rigidity or rebound, no loud borborygmi, tender in RUQ Neuro: nonfocal, TAYLOR, grossly normal sensation Musculoskeletal: good muscle tone, no fasciculations, normal gait Skin: pink warm and dry with no rashes or ecchymosis Vascular: good radial pulses, no ulceration, less than 2 second capillary refill in hand : deferred Urinary Catheter Management: Smith: Cath Placed During This Visit: yes Reason for Continuing Indwelling Catheter: Accurate Measurement of Urinary Output in Critically Ill Patients Urinary Catheter Date of Insertion: 10/30/23 Urinary Catheter Time of Insertion: 21:35 Data 10/31/23 13:33 10/31/23 13:33 Micro: Microbiology 10/30/23 19:47 Blood Culture - Preliminary Blood SPECIMEN COLLECTED 10/30/23 19:45 Blood Culture - Preliminary Blood SPECIMEN COLLECTED A&P Assessment and plan (1) Cholecystitis: Plan Patient with likely acute acalculous cholecystitis but can't get emergent HIDA scan here. She likely needs percutaneous drainage of GB and/or ERCP which can't be done here. I feel patient would be better off being transferred to higher level of care. Would continue antibiotics with hope this will lead to resolution of infection without need for operative intervention. She is higher risk for complications from drainage of GB or surgery to remove GB. Coding Level of Care Code 25539 Diagnoses Cholecystitis K81.9
--- NOTE | 2023-10-31 19:37 | USCV_ITS ---
Venessa Tyson Age: 73 Gender: F : 1950 Exam Date: 10/31/2023 03:46 Ordering Phys: Beni Sunshine MD Technologist: STEFAN Exam Location: [facility] [place] Indication: elevated troponin, abnormal EKG, s/p cardiac catheterization. BP: 77 / 53 HR: 109 Rhythm: Sinus tachycardia Technical Quality: Adequate MEASUREMENTS (Male / Female) Normal Values 2D ECHO LV Diastolic Diameter PLAX 2.8 cm 4.2 - 5.9 / 3.9 - 5.3 cm LV Systolic Diameter PLAX 2.4 cm IVS Diastolic Thickness 1.5 cm 0.6 - 1.0 / 0.6 - 0.9 cm IVS Systolic Thickness 1.5 cm LVPW Diastolic Thickness 1.3 cm 0.6 - 1.0 / 0.6 - 0.9 cm LVPW Systolic Thickness 1.5 cm LVOT Diameter 1.7 cm LV Ejection Fraction 2D Teich 30.0 % LV Ejection Fraction MOD 4C 37.9 % LV Ejection Fraction MOD 2C 37.7 % LV Ejection Fraction 2C AL 39.1 % LA Diameter 3.2 cm Aorta at Sinotubular Diameter 2.9 cm IVC Diameter 1.4 cm M-MODE LA Ao Ratio MM 1.1 AV Cusp Separation MM 1.6 cm DOPPLER AV Peak Velocity 73.0 cm/s LVOT Peak Velocity 50.0 cm/s AV Area Cont Eq vti 1.3 cm squared AV Area Cont Eq pk 1.5 cm squared MV Peak Velocity 82.0 cm/s MV Area PHT 7.5 cm squared Mitral E to A Ratio 1.2 TV Peak Velocity 264.4 cm/s TR Peak Velocity 300.0 cm/s TR Peak Gradient 36.0 mmHg TV Peak E Velocity 46.0 cm/s Right Atrial Pressure 3.0 mmHg Pulmonary Artery Systolic Pressu 39.0 mmHg PV Peak Velocity 55.0 cm/s FINDINGS Left Ventricle Suboptimal exam secondary to tachycardia. Normal left ventricular cavity size. Regional wall motion abnormalities (see diagram). Severe hypokinesis of the inferior/posterior crisostomo. ear akinesis of the septum and apical septum. mild hypokinesis of the anterior and lateral crisostomo. Left ventricular ejection fraction is estimated at 35 %. Grade I/IV diastolic dysfunction (abnormal relaxation filling pattern), normal to mildly elevated filling pressures. Right Ventricle Normal right ventricular size and systolic function. Normal right ventricular systolic pressure. Right Atrium The right atrium is normal in size. Left Atrium The left atrium is normal in size. Mitral Valve Structurally normal mitral valve. Moderate-severe mitral valve regurgitation. Aortic Valve Structurally normal aortic valve without significant sclerosis or stenosis. There is no aortic regurgitation. Tricuspid Valve Structurally normal tricuspid valve. [id number] tricuspid valve regurgitation. Pulmonic Valve Pulmonic valve not well visualized. Pericardium Pleural effusion. Aorta Normal ascending aorta dimension. IVC Inferior vena cava not visualized. CONCLUSIONS Suboptimal exam secondary to tachycardia. Normal left ventricular cavity size. Regional wall motion abnormalities (see diagram). Severe hypokinesis of the inferior/posterior crisostomo. ear akinesis of the septum and apical septum. mild hypokinesis of the anterior and lateral crisostomo. Left ventricular ejection fraction is estimated at 35 %. Grade I/IV diastolic dysfunction (abnormal relaxation filling pattern), normal to mildly elevated filling pressures. Structurally normal mitral valve. Moderate-severe mitral valve regurgitation. Pleural effusion. Dr. Beni Sunshine MD (Electronically Signed) Final Date: 31 October 2023 06:52 S
== END 2023-10-31 15:45 | disposition short-term general hospital (02) | DRG 853 ==
LOC: ER 19:30 → CCL 20:20 → ICU 21:41
PROVIDERS: Emergency Medicine; Family Medicine; Admitting Provider Internal Medicine Cardiovascular Disease; Emergency Provider Emergency Medicine; Visit Provider Internal Medicine Cardiovascular Disease
DX: A41.9 Sepsis, unspecified organism (principal); I21.11 ST elevation (STEMI) myocardial infarction involving right coronary artery; R65.21 Severe sepsis with septic shock; K85.10 Biliary acute pancreatitis without necrosis or infection; R57.0 Cardiogenic shock; K81.0 Acute cholecystitis; K83.09 Other cholangitis; N39.0 Urinary tract infection, site not specified; E87.20 Acidosis, unspecified; N17.9 Acute kidney failure, unspecified; I25.10 Atherosclerotic heart disease of native coronary artery without angina pectoris; K82.A1 Gangrene of gallbladder in cholecystitis; I25.5 Ischemic cardiomyopathy; Z95.5 Presence of coronary angioplasty implant and graft; I25.2 Old myocardial infarction
CPT/HCPCS: 51702; 71260; 74177; 76705; 80048; 80053; 81001; 83036; 83605; 83690; 83735; 84100; 84145; 84484; 85025; 86140; 87040; 87077; 87086; 87186; 93005; 93306; 93454; 96365; 96372; 96374; 96375; 99152; 99153; 99285; C1725; C1769; C1874; C1887; C1894; C9600; J0295; J1265; J1644; J1650; J2250; J2405; J2543; J3010; J3370; J3475; J7030; J7050; Q9967